=== PATIENT | female | born 1995 | race Caucasian/White ===

== ENCOUNTER 2023-01-20 08:34 | Outpatient (CLI) | payer OTHER | END 2023-01-20 08:35 | disposition home or self-care (01) | LOC: SCSMRI 08:34 | PROVIDERS: ATTEND Neurological Surgery | DX: M54.50 Low back pain, unspecified (principal); M47.816 Spondylosis without myelopathy or radiculopathy, lumbar region | CPT/HCPCS: 72148 ==

== ENCOUNTER 2023-05-08 04:49 | Emergency (ER) | payer OTHER ==
[2023-05-08] MEDS ORDERED: Ketorolac Tromethamine 30 MG/ML VIAL ONE (05:45)
[2023-05-08] MEDS ORDERED: Cyclobenzaprine 10 MG TAB ONE (05:45)
== END 2023-05-08 06:52 | disposition home or self-care (01) ==
LOC: ERS 04:49
DX: M79.605 Pain in left leg (principal)
CPT/HCPCS: 96372; 99283; J1885

== ENCOUNTER 2023-07-05 08:05 | Outpatient (CLI) | payer OTHER | END 2023-07-05 08:06 | disposition home or self-care (01) | LOC: SCSMRI 08:05 | PROVIDERS: ATTEND Psychiatry & Neurology Neurology | DX: G37.9 Demyelinating disease of central nervous system, unspecified (principal); R93.7 Abnormal findings on diagnostic imaging of other parts of musculoskeletal system; R09.89 Other specified symptoms and signs involving the circulatory and respiratory systems | CPT/HCPCS: 70553; 72156; 72157 ==